=== PATIENT | female | born 1940 | race Hispanic/Latino ===

== ENCOUNTER 2023-02-22 11:08 | Inpatient (IN) | payer MEDICARE ==
[~2023-02-22] VITALS: Ht 149.9 cm; Wt 54.4 kg
[2023-02-22] MEDS ORDERED: SODIUM CHLORIDE 0.9% 1000ML 1,000 ML IV STA ×2 (11:20→12:07)
[2023-02-22 11:57] LABS: BASOPHILS % 0.3 % (0.0-1.0); HEMATOCRIT 39.1 % (34.2-44.1); LYMPHOCYTES # (AUTO) 1.1 (1.0-3.2); MEAN CORPUSCULAR HEMOGLOBIN 30.6 pg (28-32); MEAN CORPUSCULAR HGB CONC 33.2 g/dL (31-35); MONOCYTES # (AUTO) 0.7 (0.2-0.8); MONOCYTES % 4.6 % (4.4-11.3); NEUTROPHILS # (AUTO) 12.2 (2.1-6.9); NEUTROPHILS % 86.6 % (38.7-80.0); PLATELET COUNT 210 x10e3/uL (140-360); RED BLOOD COUNT 4.25 x10e6/uL (3.6-5.1); RED CELL DISTRIBUTION WIDTH 12.6 % (11.7-14.4)
[2023-02-22 12:09] LABS: PARTIAL THROMBOPLASTIN TIME 25.7 seconds (23.8-35.5)
[2023-02-22 12:10] LABS: ALBUMIN 3.6 g/dL (3.5-5.0); ALBUMIN/GLOBULIN RATIO 1.3 (0.8-2.0); ANION GAP 15.7 mmol/L (8-16); CALCIUM 8.5 mg/dL (8.4-10.2); CREATININE, SERUM 0.76 mg/dL (0.57-1.11); MAGNESIUM 2.5 MG/DL (1.3-2.1); POTASSIUM 3.7 mmol/L (3.5-5.1)
[2023-02-22 12:12] LABS: INR 0.98; PROTHROMBIN TIME 13.5 seconds (11.9-14.5)
[2023-02-22 12:18] LABS: CREATINE KINASE MB 1.1 ng/mL (0-5.0)
[2023-02-22 12:21] LABS: BACTERIA,URINE FEW /HPF; CLARITY,URINE SL CLOUDY (CLEAR); COLOR,URINE YELLOW (YELLOW); EPITHELIAL CELLS,URINE FEW /LPF; KETONES,URINE NEGATIVE (NEGATIVE); LEUKOCYTE ESTERASE ,URINE NEGATIVE (NEGATIVE); NITRITE,URINE NEGATIVE (NEGATIVE); PROTEIN,URINE DIPSTICK NEGATIVE (NEGATIVE); RBC,URINE 0-5 /HPF (0-5); WBC,URINE (MAN) 0-5 /HPF (0-5)
[2023-02-22 12:22] LABS: HYALINE CASTS >15 (0-1)
[2023-02-22 12:31] LABS: THYROID STIMULATING HORMONE 8.332 uIU/mL (0.350-4.940)
[2023-02-22] MEDS ORDERED: ANUSOL-HC30 GM RC (13:13)
[2023-02-22] MEDS ORDERED: ONDANSETRON HCL INJ 2MG/ML 2ML 2 MG/ML VIAL IV PRN (13:45)
[2023-02-22] MEDS: FAMOTIDINE 20 MG/2 ML VIAL IV SCH ×2 (16:03→21:42)
[2023-02-22] MEDS: SODIUM CHLORIDE 0.9% 1000ML 1,000 ML IV SCH ×2 (16:03→21:42)
[2023-02-22 18:06] VITALS: BP 114/56; PULSE 68; RESP 20; TEMP 99.2; O2SAT 100
[2023-02-22 18:29] VITALS: BP 114/56; PULSE 66; RESP 16; TEMP 99.2; O2SAT 100
[2023-02-22 18:35] VITALS: BP 114/56; PULSE 66; RESP 16; TEMP 99.2; O2SAT 100
[2023-02-22] MEDS ORDERED: LEVOTHYROXINE25 MC1 PO (19:32)
[2023-02-22] MEDS ORDERED: ARICEPT5 MG PO (19:32)
[2023-02-22] MEDS ORDERED: NAMENDA10 MG PO (19:32)
[2023-02-22] MEDS ORDERED: SIMVASTATIN20 MG PO (19:32)
[2023-02-22] MEDS ORDERED: ASPIRIN81 MG PO (19:32)
[2023-02-22] MEDS ORDERED: LISINOPRIL5 MG PO (19:32)
[2023-02-22 22:21] VITALS: BP 122/62; PULSE 71; RESP 19; TEMP 97.6; O2SAT 100
[2023-02-23] VITALS (8 sets, daily range): BP systolic 94–145; BP diastolic 59–81; PULSE 64–77; RESP 16–20; TEMP 97.5–98; O2SAT 97–100
[2023-02-23 05:49] LABS: BASOPHILS % 0.2 % (0.0-1.0); HEMATOCRIT 36.3 % (34.2-44.1); HEMOGLOBIN 12.3 g/dL (12.0-16.0); LYMPHOCYTES % 7.3 % (18.0-39.1); MEAN CORPUSCULAR HEMOGLOBIN 30.9 pg (28-32); MEAN CORPUSCULAR HGB CONC 33.9 g/dL (31-35); MEAN CORPUSCULAR VOLUME 91.2 fL (81-99); MONOCYTES % 7.6 % (4.4-11.3); NEUTROPHILS # (AUTO) 11.3 (2.1-6.9); NEUTROPHILS % 84.5 % (38.7-80.0); PLATELET COUNT 199 x10e3/uL (140-360); RED BLOOD COUNT 3.98 x10e6/uL (3.6-5.1); RED CELL DISTRIBUTION WIDTH 12.4 % (11.7-14.4)
[2023-02-23 06:02] LABS: ALBUMIN/GLOBULIN RATIO 1.2 (0.8-2.0); ANION GAP 11.6 mmol/L (8-16); CALCIUM 7.1 mg/dL (8.4-10.2); CREATININE, SERUM 0.64 mg/dL (0.57-1.11); POTASSIUM 3.6 mmol/L (3.5-5.1)
[2023-02-23 06:33] LABS: CREATINE KINASE MB 1.4 ng/mL (0-5.0)
[2023-02-23] MEDS: FAMOTIDINE 20 MG/2 ML VIAL IV SCH ×2 (09:18→21:37)
[2023-02-23] MEDS: SODIUM CHLORIDE 0.9% 1000ML 1,000 ML IV SCH ×2 (09:45→21:37)
[2023-02-23 14:18] LABS: CREATINE KINASE MB 1.5 ng/mL (0-5.0)
[2023-02-23] MEDS: DONEPEZIL HCL 5 MG TAB PO SCH (21:36)
[2023-02-23] MEDS: SIMVASTATIN 20 MG TAB PO SCH (21:37)
[2023-02-24] VITALS (8 sets, daily range): BP systolic 120–136; BP diastolic 56–68; PULSE 61–87; RESP 16–20; TEMP 97.4–98.5; O2SAT 97–100
[2023-02-24] MEDS ORDERED: ARMOUR THYROID30 MG PO (03:49)
[2023-02-24] MEDS: SODIUM CHLORIDE 0.9% 1000ML 1,000 ML IV SCH ×2 (05:10→18:21)
[2023-02-24] MEDS: THYROID PORK 30 MG PO SCH (06:00)
[2023-02-24] MEDS ORDERED: LEVOTHYROXINE SODIUM PO SCH (06:00)
[2023-02-24 08:21] LABS: BASOPHILS % 0.3 % (0.0-1.0); EOSINOPHILS % 0.2 % (0.0-6.0); HEMATOCRIT 32.9 % (34.2-44.1); HEMOGLOBIN 11.2 g/dL (12.0-16.0); LYMPHOCYTES # (AUTO) 1.8 (1.0-3.2); LYMPHOCYTES % 17.7 % (18.0-39.1); MEAN CORPUSCULAR HEMOGLOBIN 30.9 pg (28-32); MEAN CORPUSCULAR VOLUME 90.6 fL (81-99); MONOCYTES # (AUTO) 1.1 (0.2-0.8); MONOCYTES % 11.1 % (4.4-11.3); NEUTROPHILS % 70.3 % (38.7-80.0); PLATELET COUNT 156 x10e3/uL (140-360); RED BLOOD COUNT 3.63 x10e6/uL (3.6-5.1); RED CELL DISTRIBUTION WIDTH 12.7 % (11.7-14.4)
[2023-02-24 08:42] LABS: ANION GAP 8.7 mmol/L (8-16); CREATININE, SERUM 0.48 mg/dL (0.57-1.11)
[2023-02-24 09:00] LABS: POTASSIUM 2.7 mmol/L (3.5-5.1)
[2023-02-24] MEDS: MEMANTINE 10 MG TAB PO SCH ×2 (09:16→16:54)
[2023-02-24] MEDS: LISINOPRIL 2.5 MG TAB PO SCH (09:16)
[2023-02-24] MEDS: ASPIRIN 81 MG CHEW TAB PO SCH (09:17)
[2023-02-24] MEDS: FAMOTIDINE 20 MG/2 ML VIAL IV SCH ×2 (09:17→21:36)
[2023-02-24] MEDS ORDERED: POTASSIUM CHLORIDE 20MEQ/100ML 200 ML IV ONE (09:30)
[2023-02-24] MEDS ORDERED: BISACODYL 10 MG SUPP PR SCH (19:00)
[2023-02-24] MEDS: SIMVASTATIN 20 MG TAB PO SCH (21:35)
[2023-02-24] MEDS: DONEPEZIL HCL 5 MG TAB PO SCH (21:35)
[2023-02-25] VITALS (7 sets, daily range): BP systolic 113–145; BP diastolic 59–77; PULSE 52–65; RESP 16–20; TEMP 97.6–98.2; O2SAT 96–100
[2023-02-25] MEDS: THYROID PORK 30 MG PO SCH (05:49)
[2023-02-25 06:35] LABS: ANION GAP 8.1 mmol/L (8-16); CREATININE, SERUM 0.47 mg/dL (0.57-1.11); POTASSIUM 3.1 mmol/L (3.5-5.1)
[2023-02-25] MEDS: MEMANTINE 10 MG TAB PO SCH ×2 (08:40→16:38)
[2023-02-25] MEDS: LISINOPRIL 2.5 MG TAB PO SCH (08:40)
[2023-02-25] MEDS: ASPIRIN 81 MG CHEW TAB PO SCH (08:41)
[2023-02-25] MEDS: FAMOTIDINE 20 MG/2 ML VIAL IV SCH ×2 (08:41→21:13)
[2023-02-25] MEDS ORDERED: POTASSIUM CHLORIDE 20MEQ/100ML 200 ML IV ONE (09:30)
[2023-02-25] MEDS: SODIUM CHLORIDE 0.9% 1000ML 1,000 ML IV SCH (17:00)
[2023-02-25] MEDS: SIMVASTATIN 20 MG TAB PO SCH (21:12)
[2023-02-25] MEDS: DONEPEZIL HCL 5 MG TAB PO SCH (21:13)
[2023-02-26 00:45] VITALS: BP 147/68; PULSE 56; RESP 17; TEMP 97.8; O2SAT 97
[2023-02-26 04:00] VITALS: BP 150/64; PULSE 57; RESP 17; TEMP 98.7; O2SAT 98
[2023-02-26] MEDS: THYROID PORK 30 MG PO SCH (06:00)
[2023-02-26 06:10] LABS: ANION GAP 7.1 mmol/L (8-16); CALCIUM 7.2 mg/dL (8.4-10.2); CREATININE, SERUM 0.45 mg/dL (0.57-1.11); POTASSIUM 3.1 mmol/L (3.5-5.1)
[2023-02-26 08:14] VITALS: BP 152/68; PULSE 57; RESP 16; TEMP 97.6; O2SAT 99
[2023-02-26 08:39] VITALS: BP 152/68; PULSE 57; RESP 16; TEMP 97.6; O2SAT 99
[2023-02-26] MEDS: MEMANTINE 10 MG TAB PO SCH (09:47)
[2023-02-26] MEDS: FAMOTIDINE 20 MG/2 ML VIAL IV SCH (09:47)
[2023-02-26] MEDS: POTASSIUM CHLORIDE 20MEQ/100ML 100 ML IV SCH ×2 (09:47→12:07)
[2023-02-26] MEDS: ASPIRIN 81 MG CHEW TAB PO SCH (09:47)
[2023-02-26] MEDS: LISINOPRIL 2.5 MG TAB PO SCH (09:48)
[2023-02-26 11:52] VITALS: BP 130/68; PULSE 57; RESP 16; TEMP 98; O2SAT 100
[2023-02-26] MEDS ORDERED: ONDANSETRON HCL 4 MG ORAL DISINTEGRATING TAB PO PRN (13:45)
[2023-02-26] MEDS: SODIUM CHLORIDE 0.9% 1000ML 1,000 ML IV SCH (14:28)
[2023-02-26 15:59] VITALS: BP 136/64; PULSE 69; RESP 17; TEMP 98.2; O2SAT 100
[2023-02-26] MEDS ORDERED: FAMOTIDINE 20 MG TAB PO SCH (21:00)
== END 2023-02-26 16:40 | disposition home or self-care (01) | DRG 871 ==
LOC: ER 11:13 → MERGE 13:40 → ERHOLD 13:40 → MED/SURG2 17:37
PROVIDERS: ADMIT Family Medicine; ATTEND Family Medicine
DX: A41.9 Sepsis, unspecified organism (principal); G93.41 Metabolic encephalopathy; R65.20 Severe sepsis without septic shock; K56.41 Fecal impaction; K52.9 Noninfective gastroenteritis and colitis, unspecified; E86.0 Dehydration
CPT/HCPCS: 36415; 70450; 71045; 74176; 80048; 80053; 81001; 82550; 82553; 82948; 83518; 83605; 83735; 84436; 84443; 84479; 84484; 85025; 85610; 85730; 87040; 87070; 87086; 93005; 99252; 99284; J2543; J3480; J7030

== ENCOUNTER → 2023-05-10 | Outpatient (CLI) | payer MEDICARE ==
[~2023-05-10] MED LIST: ANUSOL-HC30 GM RC; ARICEPT5 MG PO; ARMOUR THYROID30 MG PO; ASPIRIN81 MG PO; LEVOTHYROXINE25 MC1 PO; LISINOPRIL5 MG PO; NAMENDA10 MG PO; SIMVASTATIN20 MG PO
== END ==
LOC: DX 10:22
PROVIDERS: ATTEND Family Medicine
DX: R13.12 Dysphagia, oropharyngeal phase (principal)
CPT/HCPCS: 74230

== ENCOUNTER 2023-09-19 11:17 | Emergency (ER) | payer MEDICARE ==
[~2023-09-19] VITALS: Ht 180.3 cm; Wt 39.0 kg
[~2023-09-19 11:17] MED LIST changes: +CIPRO500 MG PO; +METRONIDAZOLE500 MG PO
[2023-09-19 12:09] VITALS: O2SAT 100
== END 2023-09-19 12:38 | disposition home or self-care (01) ==
LOC: ER 11:23
DX: Z43.1 Encounter for attention to gastrostomy (principal); F03.90 Unspecified dementia, unspecified severity, without behavioral disturbance, psychotic disturbance, mood disturbance, and anxiety; Z86.73 Personal history of transient ischemic attack (TIA), and cerebral infarction without residual deficits
CPT/HCPCS: 99282

== ENCOUNTER 2024-07-25 11:42 | Emergency (ER) | payer MEDICARE ==
[~2024-07-25] VITALS: Ht 152.4 cm; Wt 52.2 kg
[2024-07-25 12:24] VITALS: PULSE 59; RESP 15; TEMP 98.2; O2SAT 99
[2024-07-25] MEDS ORDERED: NYSTATIN-TRIAMC15 GM TOP (13:06)
[2024-07-25] MEDS ORDERED: CEPHALEXIN250 MG/5 M GT (13:06)
== END 2024-07-25 15:11 | disposition home or self-care (01) ==
LOC: ER 12:00
DX: Z43.1 Encounter for attention to gastrostomy (principal); K64.4 Residual hemorrhoidal skin tags; F03.90 Unspecified dementia, unspecified severity, without behavioral disturbance, psychotic disturbance, mood disturbance, and anxiety; I10 Essential (primary) hypertension; E78.5 Hyperlipidemia, unspecified; Z86.73 Personal history of transient ischemic attack (TIA), and cerebral infarction without residual deficits
CPT/HCPCS: 71045; 99284

== ENCOUNTER 2024-08-05 10:51 | Emergency (ER) | payer MEDICARE ==
[~2024-08-05] VITALS: Ht 152.4 cm; Wt 52.2 kg
[~2024-08-05 10:51] MED LIST changes: +CEPHALEXIN250 MG/5 M GT; +NYSTATIN-TRIAMC15 GM TOP
[2024-08-05 11:00] VITALS: TEMP 97.7
[2024-08-05 13:05] VITALS: PULSE 58; RESP 15
[2024-08-05 16:27] VITALS: BP 104/70; PULSE 58; RESP 15; TEMP 97.7; O2SAT 98
== END 2024-08-05 13:15 | disposition home or self-care (01) ==
LOC: ER 11:00
DX: Z46.6 Encounter for fitting and adjustment of urinary device (principal); I10 Essential (primary) hypertension; E78.5 Hyperlipidemia, unspecified; F03.90 Unspecified dementia, unspecified severity, without behavioral disturbance, psychotic disturbance, mood disturbance, and anxiety; Z86.73 Personal history of transient ischemic attack (TIA), and cerebral infarction without residual deficits
CPT/HCPCS: 99282

== ENCOUNTER 2024-08-11 15:21 | Inpatient (IN) | payer MEDICARE ==
[~2024-08-11] VITALS: Ht 152.4 cm; Wt 57.4 kg
[2024-08-11] MEDS ORDERED: SODIUM CHLORIDE FLUSH 10 ML SYR IV PRN (16:45)
[2024-08-11 16:47] LABS: BASOPHILS # (AUTO) 0.1 (0.0-0.1); BASOPHILS % 0.6 % (0.0-1.0); EOSINOPHILS # (AUTO) 0.1 (0.0-0.4); HEMATOCRIT 45.6 % (34.2-44.1); HEMOGLOBIN 14.9 g/dL (12.0-16.0); LYMPHOCYTES # (AUTO) 1.3 (1.0-3.2); LYMPHOCYTES % 15.6 % (18.0-39.1); MEAN CORPUSCULAR HEMOGLOBIN 30.6 pg (28-32); MEAN CORPUSCULAR HGB CONC 32.7 g/dL (31-35); MEAN CORPUSCULAR VOLUME 93.6 fL (81-99); MONOCYTES # (AUTO) 0.5 (0.2-0.8); MONOCYTES % 6.2 % (4.4-11.3); NEUTROPHILS # (AUTO) 6.3 (2.1-6.9); NEUTROPHILS % 76.2 % (38.7-80.0); PLATELET COUNT 316 x10e3/uL (140-360); RED BLOOD COUNT 4.87 x10e6/uL (3.6-5.1); RED CELL DISTRIBUTION WIDTH 13.2 % (11.7-14.4); WHITE BLOOD COUNT 8.25 x10e3/uL (4.8-10.8)
[2024-08-11 16:58] LABS: ALBUMIN 3.8 g/dL (3.5-5.0); ANION GAP 15.6 mmol/L (8-16); BILIRUBIN,TOTAL 0.4 mg/dL (0.2-1.2); CALCIUM 9.7 mg/dL (8.4-10.2); CREATININE, SERUM 0.71 mg/dL (0.57-1.11); POTASSIUM 4.6 mmol/L (3.5-5.1); TOTAL PROTEIN 7.8 g/dL (6.5-8.1)
[2024-08-11 17:27] LABS: BILIRUBIN,URINE NEGATIVE (NEGATIVE); CLARITY,URINE SL CLOUDY (CLEAR); COLOR,URINE YELLOW (YELLOW); GLUCOSE, URINE NEGATIVE (NEGATIVE); KETONES,URINE NEGATIVE (NEGATIVE); LEUKOCYTE ESTERASE ,URINE NEGATIVE (NEGATIVE); NITRITE,URINE NEGATIVE (NEGATIVE); PH,URINE 7.5 (5 - 7); PROTEIN,URINE DIPSTICK NEGATIVE (NEGATIVE); URINE UROBILINOGEN 0.2 mg/dL (0.2 - 1)
[2024-08-11 17:38] LABS: BACTERIA,URINE MODERATE /HPF; EPITHELIAL CELLS,URINE FEW /LPF; RBC,URINE 0-5 /HPF (0-5); WBC,URINE (MAN) 0-5 /HPF (0-5)
[2024-08-11 17:39] LABS: AMORPHOUS SEDIMENT,URINE FEW (FEW)
[2024-08-11] MEDS ORDERED: IOPAMIDOL 370 MG/ML 100 ML INFUS..BTL INJ ONE (17:58)
[2024-08-11 18:56] VITALS: PULSE 69; RESP 16; TEMP 99.1
[2024-08-11 19:00] VITALS: PULSE 69; RESP 16; O2SAT 97
[2024-08-11] MEDS ORDERED: ONDANSETRON HCL INJ 2MG/ML 2ML 2 MG/ML VIAL IV PRN (19:45)
[2024-08-11 19:59] LABS: TROPONIN I 0.019 ng/mL (0-0.300)
[2024-08-11] MEDS: SODIUM CHLORIDE 0.9% 1000ML 1,000 ML IV SCH (20:13)
[2024-08-12] VITALS (11 sets, daily range): BP systolic 126–154; BP diastolic 60–87; PULSE 64–113; RESP 16–20; TEMP 97.5–99.6; O2SAT 97–100
[2024-08-12 01:54] LABS: TROPONIN I 0.011 ng/mL (0-0.300)
[2024-08-12 06:20] LABS: BASOPHILS % 0.2 % (0.0-1.0); HEMATOCRIT 42.2 % (34.2-44.1); HEMOGLOBIN 13.8 g/dL (12.0-16.0); LYMPHOCYTES # (AUTO) 1.3 (1.0-3.2); LYMPHOCYTES % 8.4 % (18.0-39.1); MEAN CORPUSCULAR HEMOGLOBIN 30.6 pg (28-32); MEAN CORPUSCULAR HGB CONC 32.7 g/dL (31-35); MEAN CORPUSCULAR VOLUME 93.6 fL (81-99); MONOCYTES % 6.4 % (4.4-11.3); NEUTROPHILS # (AUTO) 13.1 (2.1-6.9); NEUTROPHILS % 84.6 % (38.7-80.0); PLATELET COUNT 296 x10e3/uL (140-360); RED BLOOD COUNT 4.51 x10e6/uL (3.6-5.1); RED CELL DISTRIBUTION WIDTH 13.1 % (11.7-14.4)
[2024-08-12 07:18] LABS: ALBUMIN 3.4 g/dL (3.5-5.0); ANION GAP 15.3 mmol/L (8-16); BILIRUBIN,TOTAL 0.5 mg/dL (0.2-1.2); CALCIUM 9.3 mg/dL (8.4-10.2); CREATININE, SERUM 0.66 mg/dL (0.57-1.11); POTASSIUM 4.3 mmol/L (3.5-5.1); TOTAL PROTEIN 6.8 g/dL (6.5-8.1)
[2024-08-12 09:28] LABS: TROPONIN I 0.041 ng/mL (0-0.300)
[2024-08-12] MEDS: Morphine 4mg INJECTION 4 MG/ML INJ IV PRN (22:45)
[2024-08-13] VITALS (7 sets, daily range): BP systolic 129–165; BP diastolic 64–80; PULSE 52–64; RESP 16–18; TEMP 98–98.6; O2SAT 95–100
[2024-08-13 05:58] LABS: BASOPHILS % 0.3 % (0.0-1.0); EOSINOPHILS % 0.3 % (0.0-6.0); HEMATOCRIT 35.4 % (34.2-44.1); HEMOGLOBIN 11.1 g/dL (12.0-16.0); LYMPHOCYTES # (AUTO) 1.9 (1.0-3.2); LYMPHOCYTES % 19.4 % (18.0-39.1); MEAN CORPUSCULAR HEMOGLOBIN 30.2 pg (28-32); MEAN CORPUSCULAR HGB CONC 31.4 g/dL (31-35); MEAN CORPUSCULAR VOLUME 96.5 fL (81-99); MONOCYTES % 10.4 % (4.4-11.3); NEUTROPHILS # (AUTO) 6.7 (2.1-6.9); NEUTROPHILS % 69.3 % (38.7-80.0); PLATELET COUNT 229 x10e3/uL (140-360); RED BLOOD COUNT 3.67 x10e6/uL (3.6-5.1); RED CELL DISTRIBUTION WIDTH 13.4 % (11.7-14.4); WHITE BLOOD COUNT 9.68 x10e3/uL (4.8-10.8)
[2024-08-13 06:32] LABS: ALBUMIN 2.9 g/dL (3.5-5.0); ANION GAP 9.3 mmol/L (8-16); BILIRUBIN,TOTAL 0.7 mg/dL (0.2-1.2); CALCIUM 8.5 mg/dL (8.4-10.2); CREATININE, SERUM 0.63 mg/dL (0.57-1.11); TOTAL PROTEIN 5.7 g/dL (6.5-8.1)
[2024-08-13 06:33] LABS: POTASSIUM 3.3 mmol/L (3.5-5.1)
[2024-08-13] MEDS: POTASSIUM CHLORIDE 20MEQ/100ML 100 ML IV ONE (15:19)
[2024-08-13] MEDS: BISACODYL 10 MG SUPP PR STA (23:51)
[2024-08-14] VITALS (9 sets, daily range): BP systolic 124–160; BP diastolic 56–75; PULSE 64–86; RESP 18; TEMP 98–100.9; O2SAT 93–100
[2024-08-14] MEDS: SOD PHOSPHATE/SOD BIPHOSPHATE ENEMA 132 ML BTL PR ONE (02:03)
[2024-08-14 05:45] LABS: BASOPHILS # (AUTO) 0.1 (0.0-0.1); BASOPHILS % 0.4 % (0.0-1.0); EOSINOPHILS # (AUTO) 0.1 (0.0-0.4); EOSINOPHILS % 0.6 % (0.0-6.0); HEMOGLOBIN 13.9 g/dL (12.0-16.0); LYMPHOCYTES # (AUTO) 1.6 (1.0-3.2); LYMPHOCYTES % 11.1 % (18.0-39.1); MEAN CORPUSCULAR HEMOGLOBIN 30.5 pg (28-32); MEAN CORPUSCULAR HGB CONC 32.3 g/dL (31-35); MEAN CORPUSCULAR VOLUME 94.5 fL (81-99); MONOCYTES # (AUTO) 0.9 (0.2-0.8); NEUTROPHILS # (AUTO) 11.7 (2.1-6.9); NEUTROPHILS % 81.6 % (38.7-80.0); PLATELET COUNT 262 x10e3/uL (140-360); RED BLOOD COUNT 4.55 x10e6/uL (3.6-5.1); RED CELL DISTRIBUTION WIDTH 13.1 % (11.7-14.4)
[2024-08-14 06:49] LABS: ALBUMIN 3.2 g/dL (3.5-5.0); ALBUMIN/GLOBULIN RATIO 0.9 (0.8-2.0); ANION GAP 21.2 mmol/L (8-16); BILIRUBIN,TOTAL 1.1 mg/dL (0.2-1.2); CALCIUM 8.7 mg/dL (8.4-10.2); CREATININE, SERUM 0.65 mg/dL (0.57-1.11); TOTAL PROTEIN 6.8 g/dL (6.5-8.1)
[2024-08-14 06:51] LABS: POTASSIUM 3.2 mmol/L (3.5-5.1)
[2024-08-14] MEDS: POLYETHYLENE GLYCOL 3350 17 GM PACK PO SCH (08:59)
[2024-08-15] VITALS (8 sets, daily range): BP systolic 134–141; BP diastolic 57–68; PULSE 63–78; RESP 16–18; TEMP 98–99.7; O2SAT 97–100
[2024-08-15] MEDS ORDERED: ACETAMINOPHEN 325 MG TAB PO PRN (00:15)
[2024-08-15 05:44] LABS: BASOPHILS % 0.2 % (0.0-1.0); HEMATOCRIT 35.3 % (34.2-44.1); HEMOGLOBIN 11.8 g/dL (12.0-16.0); LYMPHOCYTES # (AUTO) 1.4 (1.0-3.2); LYMPHOCYTES % 8.2 % (18.0-39.1); MEAN CORPUSCULAR HEMOGLOBIN 30.7 pg (28-32); MEAN CORPUSCULAR HGB CONC 33.4 g/dL (31-35); MEAN CORPUSCULAR VOLUME 91.9 fL (81-99); MONOCYTES # (AUTO) 1.6 (0.2-0.8); MONOCYTES % 9.7 % (4.4-11.3); NEUTROPHILS # (AUTO) 13.5 (2.1-6.9); NEUTROPHILS % 81.4 % (38.7-80.0); PLATELET COUNT 246 x10e3/uL (140-360); RED BLOOD COUNT 3.84 x10e6/uL (3.6-5.1); RED CELL DISTRIBUTION WIDTH 13.3 % (11.7-14.4); WHITE BLOOD COUNT 16.62 x10e3/uL (4.8-10.8)
[2024-08-15 06:13] LABS: ANION GAP 17.4 mmol/L (8-16); CALCIUM 8.3 mg/dL (8.4-10.2); CREATININE, SERUM 0.62 mg/dL (0.57-1.11)
[2024-08-15 06:21] LABS: POTASSIUM 2.4 mmol/L (3.5-5.1)
[2024-08-15] MEDS: POTASSIUM CHLORIDE 20MEQ/100ML 100 ML IV SCH ×2 (06:38→12:26)
[2024-08-16] VITALS (7 sets, daily range): BP systolic 114–154; BP diastolic 50–88; PULSE 63–89; RESP 16–19; TEMP 97.3–98.6; O2SAT 95–99
[2024-08-16 06:19] LABS: BASOPHILS % 0.3 % (0.0-1.0); EOSINOPHILS # (AUTO) 0.1 (0.0-0.4); EOSINOPHILS % 0.7 % (0.0-6.0); HEMOGLOBIN 11.6 g/dL (12.0-16.0); LYMPHOCYTES # (AUTO) 1.9 (1.0-3.2); LYMPHOCYTES % 18.5 % (18.0-39.1); MEAN CORPUSCULAR HEMOGLOBIN 30.2 pg (28-32); MEAN CORPUSCULAR HGB CONC 33.1 g/dL (31-35); MEAN CORPUSCULAR VOLUME 91.1 fL (81-99); MONOCYTES # (AUTO) 1.1 (0.2-0.8); MONOCYTES % 10.6 % (4.4-11.3); NEUTROPHILS # (AUTO) 7.2 (2.1-6.9); NEUTROPHILS % 69.6 % (38.7-80.0); PLATELET COUNT 238 x10e3/uL (140-360); RED BLOOD COUNT 3.84 x10e6/uL (3.6-5.1); RED CELL DISTRIBUTION WIDTH 13.2 % (11.7-14.4); WHITE BLOOD COUNT 10.32 x10e3/uL (4.8-10.8)
[2024-08-16 06:48] LABS: ANION GAP 12.8 mmol/L (8-16); CALCIUM 8.2 mg/dL (8.4-10.2); CREATININE, SERUM 0.5 mg/dL (0.57-1.11); MAGNESIUM 1.7 MG/DL (1.3-2.1)
[2024-08-16 06:52] LABS: POTASSIUM 2.8 mmol/L (3.5-5.1)
[2024-08-16] MEDS: KCL 20 MEQ PACKET/ ORAL SOLN NG STA (08:20)
[2024-08-16] MEDS: POTASSIUM CHLORIDE 20MEQ/100ML 200 ML IV ONE (08:22)
[2024-08-16] MEDS: MAGNESIUM SULFATE 2GM/50ML 50 ML IV ONE (08:22)
[2024-08-17] VITALS: BP 147/70; PULSE 73; RESP 16; TEMP 98.2; O2SAT 99
[2024-08-17 05:29] LABS: BASOPHILS % 0.4 % (0.0-1.0); EOSINOPHILS # (AUTO) 0.1 (0.0-0.4); EOSINOPHILS % 1.7 % (0.0-6.0); HEMATOCRIT 35.6 % (34.2-44.1); HEMOGLOBIN 11.9 g/dL (12.0-16.0); LYMPHOCYTES % 25.8 % (18.0-39.1); MEAN CORPUSCULAR HEMOGLOBIN 30.6 pg (28-32); MEAN CORPUSCULAR HGB CONC 33.4 g/dL (31-35); MEAN CORPUSCULAR VOLUME 91.5 fL (81-99); MONOCYTES # (AUTO) 0.8 (0.2-0.8); MONOCYTES % 10.4 % (4.4-11.3); NEUTROPHILS # (AUTO) 4.8 (2.1-6.9); NEUTROPHILS % 61.3 % (38.7-80.0); PLATELET COUNT 257 x10e3/uL (140-360); RED BLOOD COUNT 3.89 x10e6/uL (3.6-5.1); RED CELL DISTRIBUTION WIDTH 13.2 % (11.7-14.4); WHITE BLOOD COUNT 7.76 x10e3/uL (4.8-10.8)
[2024-08-17 05:55] LABS: CARBON DIOXIDE 20 mmol/L (22-29); CHLORIDE 110 mmol/L (98-107); CREATININE, SERUM 0.48 mg/dL (0.57-1.11); EST GLOMERULAR FILTRATION RATE 94 ML/MIN (>=60); GLUCOSE 101 mg/dL (74-118); SODIUM 137 mmol/L (136-145)
[2024-08-17 06:16] LABS: BLOOD UREA NITROGEN < 5 mg/dL (7-26)
[2024-08-17 06:17] LABS: BUN/CREATININE RATIO 10 (6-25)
[2024-08-17 06:21] VITALS: BP 156/79; PULSE 90; RESP 16; TEMP 97.7; O2SAT 95
[2024-08-17 08:00] VITALS: BP 140/62; PULSE 71; RESP 19; TEMP 98.9; O2SAT 99
[2024-08-17 12:00] VITALS: BP 153/68; PULSE 61; RESP 18; TEMP 98.2; O2SAT 100
[2024-08-17 16:00] VITALS: BP 146/66; PULSE 86; RESP 18; TEMP 98.3; O2SAT 100
[2024-08-17 20:00] VITALS: BP 126/74; PULSE 86; RESP 17; TEMP 98.2; O2SAT 100
[2024-08-17] MEDS: POTASSIUM CHLORIDE 20MEQ/100ML 100 ML IV SCH (20:04)
[2024-08-18] VITALS (11 sets, daily range): BP systolic 125–168; BP diastolic 64–81; PULSE 60–93; RESP 18–21; TEMP 98–99.3; O2SAT 98–100
[2024-08-18 06:26] LABS: BLOOD UREA NITROGEN < 5 mg/dL (7-26); CALCIUM 8.1 mg/dL (8.4-10.2); CARBON DIOXIDE 19 mmol/L (22-29); CHLORIDE 109 mmol/L (98-107); CREATININE, SERUM 0.49 mg/dL (0.57-1.11); EST GLOMERULAR FILTRATION RATE 93 ML/MIN (>=60); GLUCOSE 96 mg/dL (74-118); MAGNESIUM 1.9 MG/DL (1.3-2.1); SODIUM 137 mmol/L (136-145)
[2024-08-18 06:38] LABS: BUN/CREATININE RATIO 10 (6-25)
[2024-08-18] MEDS: POTASSIUM CHLORIDE 20MEQ/100ML 100 ML IV SCH (12:55)
[2024-08-19] VITALS (7 sets, daily range): BP systolic 127–160; BP diastolic 63–83; PULSE 65–91; RESP 18; TEMP 97.3–99.3; O2SAT 97–100
[2024-08-19 06:45] LABS: ANION GAP 14.2 mmol/L (8-16); CALCIUM 8.4 mg/dL (8.4-10.2); CREATININE, SERUM 0.52 mg/dL (0.57-1.11)
[2024-08-19 06:53] LABS: POTASSIUM 3.2 mmol/L (3.5-5.1)
[2024-08-19] MEDS: KCL 20 MEQ PACKET/ ORAL SOLN NG SCH (09:00)
[2024-08-19] MEDS: POLYETHYLENE GLYCOL 3350 17 GM PACK PO SCH (10:00)
[2024-08-19] MEDS ORDERED: MIRALAX17 GM PO (10:04)
[2024-08-19] MEDS ORDERED: POTASSIUM CHLO20 ME1 PO (10:05)
[2024-08-19] MEDS: POTASSIUM CHLORIDE 20MEQ/100ML 100 ML IV SCH (10:37)
== END 2024-08-19 14:42 | disposition home health service (06) | DRG 389 ==
LOC: ER 15:37 → ERHOLD 19:32 → MED/SURG2 22:42
PROVIDERS: ADMIT Family Medicine; ATTEND Family Medicine
DX: K56.0 Paralytic ileus (principal); E87.4 Mixed disorder of acid-base balance; K56.41 Fecal impaction; E87.6 Hypokalemia; E83.42 Hypomagnesemia; Z93.1 Gastrostomy status; I10 Essential (primary) hypertension; E78.5 Hyperlipidemia, unspecified; F03.90 Unspecified dementia, unspecified severity, without behavioral disturbance, psychotic disturbance, mood disturbance, and anxiety; R53.81 Other malaise; Z79.82 Long term (current) use of aspirin; Z86.73 Personal history of transient ischemic attack (TIA), and cerebral infarction without residual deficits; Z74.01 Bed confinement status
CPT/HCPCS: 36415; 74019; 74177; 80048; 80053; 81001; 82550; 83735; 84484; 85025; 94799; 99252; 99284; J2270; J2543; J3475; J3480; J7030; Q9967